=== PATIENT | male | born 1990 | race Caucasian/White ===

== ENCOUNTER 2019-06-25 15:48 | Emergency (ER) | payer OTHER ==
--- NOTE | 2019-06-25 16:09 | EDM.PDOC ---
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 He denies any other complaints at this time has no numbness tingling or loss of sensation or loss of function He is unsure of his tetanus status but states he has had multiple stitches over the last 10 years so it should be up-to-date he has no comorbidities Onset: Sudden Duration: Minutes: Location: Reports: Upper Extremity, Left Left Finger-Middle Pain Score (Numeric/FACES): 3 - Related Data Allergies Allergy/AdvReac Type Severity Reaction Status Date / Time No Known Allergies Allergy Verified 06/25/19 16:09 Home Meds: Home Meds . [No Known Home Meds] 06/25/19 [History] ED ROS GENERAL - Review of Systems Review Of Systems: See Below Constitutional: Reports: No Symptoms Respiratory: Reports: No Symptoms Cardiovascular: Reports: No Symptoms Endocrine: Reports: No Symptoms GI/Abdominal: Reports: No Symptoms : Reports: No Symptoms Musculoskeletal: Reports: No Symptoms Skin: Reports: No Symptoms Neurological: Reports: No Symptoms Psychiatric: Reports: No Symptoms Hematologic/Lymphatic: Reports: No Symptoms Immunologic: Reports: No Symptoms ED EXAM, SKIN/RASH Exam: See Below Exam Limited By: No Limitations General Appearance: Alert, WD/WN, No Apparent Distress. No: Mild Distress Extremities: Normal Inspection, Normal Range of Motion, Non-Tender, Normal Capillary Refill, Other (Exam to the left hand neurovascularly intact strong radius and ulna pulses full range of motion with all phalanges 1 cm x 2 mm x 3 mm linear laceration to the left third finger posterior aspect proximal to the PIP has equal soft touch sensation positive FDS FDP normal extension positive cap refill) Neurological: Alert, Oriented, CN II-XII Intact, Normal Cognition, Normal Gait, No Motor/Sensory Deficits Psychiatric: Normal Affect, Normal Mood Skin: Warm, Dry, Normal Color, No Rash. No: Intact Course - Vital Signs Text/Narrative:: Laceration was cleaned and irrigated with normal saline and Hibiclens Tetanus diphtheria was given to the patient last one was in 2007 Digital block was performed with Marcaine 0.5% 1 cc to the third digit laceration was closed with #5-0 Ethilon #3 simple interrupted covered with Neosporin petroleum gauze 4 x 4 and Kerlix Was given signs and symptoms on wound care and infection with a verbal understanding he was also instructed to have them removed in 7 to 10 days follow -up with your primary care provider in the next 24 to 48 hours for wound recheck Last Recorded V/S: Last Vital Signs Temp 36.8 C 06/25/19 15:55 Pulse 88 06/25/19 15:55 Resp 16 06/25/19 15:55 BP 155/98 H 06/25/19 15:55 Pulse Ox 98 06/25/19 15:55 - Orders/Labs/Meds Orders: Active Orders 24 hr Category Date Time Status Vaccines to be Administered [RC] PER UNIT ROUTINE Care 06/25/19 16:50 Active Meds: Medications Discontinued Medications Generic Name Dose Route Start Last Admin Trade Name Juani PRN Reason Stop Dose Admin Bupivacaine HCl 30 ml 06/25/19 16:15 06/25/19 16:15 Marcaine 0.5% INJECT 30 ml ASDIRECTED PRN Administration Other Diphtheria/Tetanus/Acell Pertussis 0.5 ml 06/25/19 16:50 06/25/19 17:00 Adacel IM 06/25/19 16:51 0.5 ml .ONCE ONE Administration Departure - Departure Time of Disposition: 16:35 Disposition: Home, Self-Care 01 Condition: Good Clinical Impression: Laceration of finger of left hand - Discharge Information *PRESCRIPTION DRUG MONITORING PROGRAM REVIEWED*: No *COPY OF PRESCRIPTION DRUG MONITORING REPORT IN PATIENT ALCIDES: No Instructions: Laceration Care, Adult, [id number] Referrals: PCP,None [Primary Care Provider] - Forms: ED Department Discharge Additional Instructions: Patient was given signs and symptoms on wound care and infection with a verbal understanding he was also instructed to have them removed in 7 to 10 days follow -up with your primary care provider in the next 24 to 48 hours for wound recheck Return to the emergency room if anything changes or gets worse Sepsis Event Note - Focused Exam Date Exam was Performed: 06/26/19 Time Exam was Performed: 15:09 - Problem List & Annotations (1) Laceration of finger of left hand SNOMED Code(s): 728063226 Code(s): S61.219A - LACERATION W/O FB OF UNSP FINGER W/O DAMAGE TO NAIL, INIT Status: Acute - My Orders Last 24 Hours: My Active Orders 06/25/19 16:50 Vaccines to be Administered [RC] PER UNIT ROUTINE - Assessment/Plan Last 24 Hours: My Active Orders 06/25/19 16:50 Vaccines to be Administered [RC] PER UNIT ROUTINE
[2019-06-25] MEDS ORDERED: Bupivacaine 0.5% 30 ML SDV INJECT PRN (16:15)
[2019-06-25] MEDS ORDERED: Diphtheria,Pertussis(Acell),Tetanus Vaccine 0.5 ML Syringe IM ONE (16:50)
== END 2019-06-25 17:05 | disposition home or self-care (01) ==
LOC: VM.ED 15:48
DX: S61.213A Laceration without foreign body of left middle finger without damage to nail, initial encounter (principal); Z23 Encounter for immunization; W26.0XXA Contact with knife, initial encounter
CPT/HCPCS: 12001; 90471; 90715; 99282; J3490

== ENCOUNTER 2021-05-20 11:41 | Emergency (ER) | payer BC ==
[2021-05-20] MEDS ORDERED: Aspirin 81 MG Tab.Chew PO ONE (12:03)
[2021-05-20 12:36] LABS: PTT,PARTIAL THROMBOPLSTIN TIME 24.3 SEC (25.6-32.8)
[2021-05-20 12:45] LABS: CHLORIDE,CL 98 mmol/L (98-107); SODIUM,NA 138 mmol/L (136-145)
[2021-05-20 12:48] LABS: ANION GAP 16.9 mmol/L (5-15)
--- NOTE | 2021-05-20 14:05 | EDM.PDOC ---
ED HPI GENERAL MEDICAL PROBLEM - General Chief Complaint: Chest Pain Stated Complaint: CHEST TIGHTNESS Time Seen by Provider: 05/20/21 11:50 Source of Information: Reports: Patient History Limitations: Reports: No Limitations - History of Present Illness INITIAL COMMENTS - FREE TEXT/NARRATIVE: Pt. presents to ER with complaints of chest tightness and lightheadedness. Pt. reports acute onset of symptoms today while shovelling snow. He states that he was not short of breath. No lightheadedness. No palpitations. He states that he was diaphoretic after this event, but he had been shovelling. He reports that the symptoms resolved after arriving to ER. Pt. has a history of ETOH abuse. Denies consumption of ETOH today. He does have a history of hypertension. He states that he has a history of previous episodes of intermittent chest pain necessitating visits to ERs in [place] and in [place]. He states that he has never had a stress test for formal workup for this. Onset: Today Onset Date: 05/20/21 Location: Reports: Chest - Related Data Allergies Allergy/AdvReac Type Severity Reaction Status Date / Time clonazepam Allergy Other Verified 02/01/21 14:29 Home Meds: Home Meds Cetirizine [ZyrTEC] 10 mg PO DAILY PRN 02/01/21 [History] Ibuprofen [Advil] 200 - 600 mg PO Q4H 02/01/21 [History] Metoprolol Tartrate [Lopressor] 50 mg PO BID 02/01/21 [History] Omeprazole Magnesium [Prilosec Otc] 20 mg PO DAILY 02/01/21 [History] Sertraline [Zoloft] 100 mg PO DAILY 02/01/21 [History] Past Medical History - Past Health History Medical/Surgical History: Denies Medical/Surgical History Musculoskeletal History: Reports: Other (See Below) Other Musculoskeletal History: shoulder pain Psychiatric History: Reports: ADHD - Past Surgical History GI Surgical History: Reports: Colonoscopy ED ROS GENERAL - Review of Systems Review Of Systems: See Below Constitutional: Reports: No Symptoms HEENT: Reports: No Symptoms Respiratory: Reports: Shortness of Breath, Pleuritic Chest Pain Cardiovascular: Reports: Chest Pain Endocrine: Reports: No Symptoms GI/Abdominal: Reports: No Symptoms : Reports: No Symptoms Musculoskeletal: Reports: No Symptoms Skin: Reports: No Symptoms Neurological: Reports: No Symptoms Psychiatric: Reports: No Symptoms Hematologic/Lymphatic: Reports: No Symptoms Immunologic: Reports: No Symptoms ED EXAM, GENERAL - Physical Exam Exam: See Below Exam Limited By: No Limitations General Appearance: Alert, WD/WN, No Apparent Distress Throat/Mouth: Normal Inspection, Normal Lips, Normal Teeth, Normal Gums, Normal Oropharynx, Normal Voice, No Airway Compromise Head: Atraumatic, Normocephalic Neck: Normal Inspection, Supple, Non-Tender, Full Range of Motion Respiratory/Chest: No Respiratory Distress, Lungs Clear, Normal Breath Sounds, No Accessory Muscle Use, Chest Non-Tender Cardiovascular: Normal Peripheral Pulses, Regular Rate, Rhythm, No Edema, No JVD, No Murmur Peripheral Pulses: 4+: Radial (L) GI/Abdominal: Soft, Non-Tender, No Distention, No Mass (Male) Exam: Deferred Rectal (Males) Exam: Deferred Back Exam: Normal Inspection, Full Range of Motion Extremities: Normal Inspection, Normal Range of Motion, Non-Tender, No Pedal Edema, Normal Capillary Refill Neurological: Alert, Oriented, CN II-XII Intact, Normal Cognition, Normal Gait, Normal Reflexes, No Motor/Sensory Deficits Psychiatric: Normal Affect, Normal Mood Skin Exam: Warm, Dry, Intact, Normal Color, No Rash Lymphatic: No Adenopathy #1 Interpretation Rhythm: NSR [place]: Normal P-Wave: Present QRS: Normal ST-T: Normal QT: Normal Course - Orders/Labs/Meds Orders: Active Orders 24 hr Category Date Time Status EKG Documentation Completion [RC] STAT Care 05/20/21 11:57 Active Labs: Laboratory Tests 05/20/21 05/20/21 05/20/21 Range/Units 12:08 12:08 12:08 WBC 5.0 (4.0-10.0) x10^3/uL RBC 4.44 L (4.5-6.0) x10^6/uL Hgb 14.5 (14.0-18.0) g/dL Hct 40.7 (40.0-52.0) % MCV 91.7 (78.0-93.0) fL MCH 32.7 H (26.0-32.0) pg MCHC 35.6 (32.0-36.0) g/dL RDW Coeff of Ruth 14.1 (10.0-15.0) % Plt Count 172 (130-400) x10^3/uL Immature Gran % (Auto) 0.20 (0.00-0.43) % Neut % (Auto) 63.1 (50.0-80.0) % Lymph % (Auto) 23.8 L (25.0-50.0) % [place] % (Auto) 9.3 (2.0-11.0) % Eos % (Auto) 3.0 (0.0-4.0) % Baso % (Auto) 0.6 (0.2-1.2) % Neut # (Auto) 3.1 (1.8-7.7) x10^3/uL Lymph # (Auto) 1.2 (1.0-4.8) x10^3/uL [place] # (Auto) 0.5 (0.0-0.8) x10^3/uL Eos # (Auto) 0.2 (0.0-0.5) x10^3/uL Baso # (Auto) 0.0 (0.0-0.2) x10^3/uL Immature Gran # (Auto) 0.01 (0.00-0.07) x10^3/uL PT 10.6 (9.9-12.5) SEC INR 1.0 L (2.0-3.5) APTT 24.3 L (25.6-32.8) SEC D-Dimer, Quantitative (<=0.58) mg/LFEU Sodium 138 (136-145) mmol/L Potassium 3.9 (3.5-5.1) mmol/L Chloride 98 (98-107) mmol/L Carbon Dioxide 27 (21-32) mmol/L Anion Gap 16.9 H (5-15) mmol/L BUN 6 L (7-18) mg/dL Creatinine 1.1 (0.70-1.30) mg/dL Est Cr Clr Drug Dosing TNP Estimated GFR (MDRD) > 60 Glucose 125 H (70-99) mg/dL Calcium 9.0 (8.5-10.1) mg/dL Corrected Calcium 8.9 (8.5-10.1) mg/dL Total Bilirubin 0.4 (0.2-1.0) mg/dL AST 228 H (15-37) U/L ALT 195 H (16-63) U/L Alkaline Phosphatase 123 H (46-116) U/L Troponin I High Sens 5 (<=76) ng/L C-Reactive Protein < 0.2 (<=0.9) mg/dL Total Protein 7.3 (6.4-8.2) g/dL Albumin 4.1 (3.4-5.0) g/dL Globulin 3.2 Albumin/Globulin Ratio 1.28 Ethyl Alcohol < 3 (0-3) mg/dL 05/20/21 Range/Units 12:08 WBC (4.0-10.0) x10^3/uL RBC (4.5-6.0) x10^6/uL Hgb (14.0-18.0) g/dL Hct (40.0-52.0) % MCV (78.0-93.0) fL MCH (26.0-32.0) pg MCHC (32.0-36.0) g/dL RDW Coeff of Ruth (10.0-15.0) % Plt Count (130-400) x10^3/uL Immature Gran % (Auto) (0.00-0.43) % Neut % (Auto) (50.0-80.0) % Lymph % (Auto) (25.0-50.0) % [place] % (Auto) (2.0-11.0) % Eos % (Auto) (0.0-4.0) % Baso % (Auto) (0.2-1.2) % Neut # (Auto) (1.8-7.7) x10^3/uL Lymph # (Auto) (1.0-4.8) x10^3/uL [place] # (Auto) (0.0-0.8) x10^3/uL Eos # (Auto) (0.0-0.5) x10^3/uL Baso # (Auto) (0.0-0.2) x10^3/uL Immature Gran # (Auto) (0.00-0.07) x10^3/uL PT (9.9-12.5) SEC INR (2.0-3.5) APTT (25.6-32.8) SEC D-Dimer, Quantitative 0.45 (<=0.58) mg/LFEU Sodium (136-145) mmol/L Potassium (3.5-5.1) mmol/L Chloride (98-107) mmol/L Carbon Dioxide (21-32) mmol/L Anion Gap (5-15) mmol/L BUN (7-18) mg/dL Creatinine (0.70-1.30) mg/dL Est Cr Clr Drug Dosing Estimated GFR (MDRD) Glucose (70-99) mg/dL Calcium (8.5-10.1) mg/dL Corrected Calcium (8.5-10.1) mg/dL Total Bilirubin (0.2-1.0) mg/dL AST (15-37) U/L ALT (16-63) U/L Alkaline Phosphatase (46-116) U/L Troponin I High Sens (<=76) ng/L C-Reactive Protein (<=0.9) mg/dL Total Protein (6.4-8.2) g/dL Albumin (3.4-5.0) g/dL Globulin Albumin/Globulin Ratio Ethyl Alcohol (0-3) mg/dL Meds: Medications Discontinued Medications Generic Name Dose Route Start Last Admin Trade Name Freq PRN Reason Stop Dose Admin Aspirin 324 mg 05/20/21 12:03 05/20/21 12:10 Aspirin 81 Mg Tab.Chew PO 05/20/21 12:04 324 mg ONETIME ONE Administration Departure - Departure Time of Disposition: 12:30 Disposition: Home, Self-Care 01 Clinical Impression: Atypical chest pain - Discharge Information Instructions: Nonspecific Chest Pain, Adult, [id number] Referrals: Ron Gallegos PA-C [Primary Care Provider] - Additional Instructions: Home to rest. All of your tests today are within normal limits, with the exception of elevated liver function tests which happens when a person drinks alcohol. I will forward the information about this visit to Ron Gallegos. I suggest having a stress test performed, since you have had problems with intermittent chest pain in the past. Return to ER if you have worsening discomfort, shortness of breath, or lightheadedness. - Problem List Review Problem List Initiated/Reviewed/Updated: Yes - My Orders Last 24 Hours: My Active Orders 05/20/21 11:57 EKG Documentation Completion [RC] STAT - Assessment/Plan Last 24 Hours: My Active Orders 05/20/21 11:57 EKG Documentation Completion [RC] STAT Plan: Home to rest. All of your tests today are within normal limits, with the exception of elevated liver function tests which happens when a person drinks alcohol. I will forward the information about this visit to Ron Gallegos. I suggest having a stress test performed, since you have had problems with intermittent chest pain in the past. Return to ER if you have worsening discomfort, shortness of breath, or lightheadedness.
== END 2021-05-20 13:13 | disposition home or self-care (01) ==
LOC: VM.ED 11:41
DX: R07.89 Other chest pain (principal); Z88.8 Allergy status to other drugs, medicaments and biological substances; Z79.899 Other long term (current) drug therapy
CPT/HCPCS: 80053; 80307; 84484; 85025; 85379; 85610; 85730; 86140; 93005; 99285-25; A9270-GY

== ENCOUNTER 2022-01-01 16:13 | Observation (INO) | payer BC ==
[2022-01-01] MEDS ORDERED: Sodium Chloride 0.9% 10 ML Syringe FLUSH PRN (16:57)
[2022-01-01 17:44] LABS: PTT,PARTIAL THROMBOPLSTIN TIME 24.8 SEC (20.5-30.9)
[2022-01-01 17:50] LABS: ANION GAP 18.7 mmol/L (5-15)
[2022-01-01] MEDS ORDERED: Lactated Ringers 1,000 ML IV ONE ×2 (18:18→21:40)
[2022-01-01] MEDS ORDERED: Magnesium Oxide 400 MG Tab PO ONE (18:26)
[2022-01-01] MEDS ORDERED: LORazepam 1 MG Tab PO PRN (18:26)
[2022-01-01] MEDS ORDERED: Ondansetron 4 MG/2 ML SDV IVPUSH PRN (18:26)
[2022-01-01] MEDS ORDERED: cloNIDine 0.1 MG Tab PO PRN (18:26)
[2022-01-01] MEDS ORDERED: Metoprolol Tartrate 25 MG Tab PO PRN (18:26)
[2022-01-01] MEDS ORDERED: chlordiazePOXIDE 25 MG Cap PO SCH (18:30)
[2022-01-01] MEDS: Nicotine 21 MG/24 Hr Patch TRDERM SCH (20:54)
[2022-01-01] MEDS: chlordiazePOXIDE 25 MG Cap PO SCH (21:35)
[2022-01-02] MEDS ORDERED: Magnesium Oxide 400 MG Tab PO ONE (00:15)
[2022-01-02] MEDS: chlordiazePOXIDE 25 MG Cap PO SCH ×6 (01:32→21:42)
[2022-01-02] MEDS ORDERED: Acetaminophen 500 MG Tab PO PRN (02:31)
[2022-01-02] MEDS: Thiamine 100 MG Tab PO SCH (09:31)
[2022-01-02] MEDS: Folic Acid 1 MG Tab PO SCH (09:31)
[2022-01-02] MEDS: Multivitamins with Iron/Calcium/Folic Acid/Minerals Tab PO SCH (09:31)
[2022-01-02] MEDS: Nicotine 21 MG/24 Hr Patch TRDERM SCH (09:36)
[2022-01-02] MEDS: Pantoprazole 40 MG Vial IV SCH (09:40)
[2022-01-03] MEDS: chlordiazePOXIDE 25 MG Cap PO SCH (04:32)
[2022-01-03] MEDS: Folic Acid 1 MG Tab PO SCH (08:42)
[2022-01-03] MEDS: Thiamine 100 MG Tab PO SCH (08:42)
[2022-01-03] MEDS: Multivitamins with Iron/Calcium/Folic Acid/Minerals Tab PO SCH (08:42)
[2022-01-03] MEDS: Nicotine 21 MG/24 Hr Patch TRDERM SCH (08:45)
[2022-01-03] MEDS: Pantoprazole 40 MG Vial IV SCH (08:47)
[2022-01-05] MEDS ORDERED: Gabapentin 100 MG Cap PO SCH (18:30)
== END 2022-01-03 09:00 | disposition home or self-care (01) ==
LOC: VM.ED 16:13 → VM.MS 17:58
PROVIDERS: ADMIT Physician Assistant; ATTEND Physician Assistant
DX: F10.10 Alcohol abuse, uncomplicated (principal); K21.9 Gastro-esophageal reflux disease without esophagitis; F17.210 Nicotine dependence, cigarettes, uncomplicated; Z88.8 Allergy status to other drugs, medicaments and biological substances; Z91.030 Bee allergy status; Z79.899 Other long term (current) drug therapy; Z98.890 Other specified postprocedural states
CPT/HCPCS: 80053; 80143; 80179; 80307; 81003; 82150; 83690; 83735; 84100; 84443; 85025; 85610; 85730; 96360; 96361; 96374; 99217; 99220; 99225; 99284-25; A9270-GY; C9113; G0378; J7120

== ENCOUNTER 2022-08-16 04:47 | Emergency (ER) | payer BC ==
[2022-08-16] MEDS: Take Home: Acetaminophen/Codeine 300 MG/30 MG, 5 Tab Pack PO ONE (05:20)
[2022-08-16] MEDS: Ketorolac 30 MG/ML SDV IM ONE (05:20)
== END 2022-08-16 05:35 | disposition home or self-care (01) ==
LOC: VM.ED 04:47
DX: K04.7 Periapical abscess without sinus (principal); I10 Essential (primary) hypertension; K21.9 Gastro-esophageal reflux disease without esophagitis; Z79.899 Other long term (current) drug therapy; Z88.8 Allergy status to other drugs, medicaments and biological substances; Z91.030 Bee allergy status
CPT/HCPCS: 96372; 99282; A9270-GY; J1885

== ENCOUNTER 2022-11-12 18:36 | Emergency (ER) | payer BC ==
[2022-11-12] MEDS ORDERED: Sodium Chloride 0.9% 1,000 ML IV ONE (18:46)
[2022-11-12] MEDS ORDERED: Sodium Chloride 0.9% 10 ML Syringe FLUSH PRN (18:46)
[2022-11-12 18:59] LABS: BASOPHILS ABSOLUTE AUTO 0.1 x10^3/uL (0.0-0.2); EOSINOPHILS ABSOLUTE AUTO 0.2 x10^3/uL (0.0-0.5); EOSINOPHILS PERCENT AUTO 3.4 % (0.0-4.0); HEMATOCRIT 45.2 % (40.0-52.0); HEMOGLOBIN 15.3 g/dL (14.0-18.0); IMMATURE GRAN ABSOLUTE AUTO 0.03 x10^3/uL (0.00-0.07); LYMPHOCYTES ABSOLUTE AUTO 2.4 x10^3/uL (1.0-4.8); LYMPHOCYTES PERCENT AUTO 39.5 % (25.0-50.0); MEAN CORPUSCULAR HEMOGLOBIN 28.2 pg (26.0-32.0); MEAN CORPUSCULAR HGB CONC 33.8 g/dL (32.0-36.0); MEAN CORPUSCULAR VOLUME 83.4 fL (78.0-93.0); MONOCYTES ABSOLUTE AUTO 0.5 x10^3/uL (0.0-0.8); MONOCYTES PERCENT AUTO 7.8 % (2.0-11.0); NEUTROPHILS ABSOLUTE AUTO 2.9 x10^3/uL (1.8-7.7); NEUTROPHILS PERCENT AUTO 47.8 % (50.0-80.0); RED BLOOD CELL COUNT 5.42 x10^6/uL (4.5-6.0); WHITE BLOOD CELL COUNT,WBC 6.1 x10^3/uL (4.0-10.0)
[2022-11-12 19:16] LABS: PLATELET COUNT,PLT 184 x10^3/uL (130-400)
[2022-11-12 19:17] LABS: A/G RATIO 1.18; ALANINE AMINOTRANSFERASE,ALT 118 U/L (16-63); ALKALINE PHOSPHATASE 93 U/L (46-116); ASPARTATE AMNIOTRANSFERASE,AST 84 U/L (15-37); BILIRUBIN TOTAL 0.2 mg/dL (0.2-1.0); BLOOD UREA NITROGEN,BUN 5 mg/dL (7-18); CALCIUM 8.6 mg/dL (8.5-10.1); CARBON DIOXIDE,CO2 26 mmol/L (21-32); CHLORIDE,CL 106 mmol/L (98-107); GLUCOSE RANDOM 127 mg/dL (70-99); POTASSIUM,K 4.1 mmol/L (3.5-5.1); PROTEIN TOTAL,TP 7.4 g/dL (6.4-8.2); SODIUM,NA 146 mmol/L (136-145)
[2022-11-12 19:18] LABS: ANION GAP 18.1 mmol/L (5-15); ESTIMATED GFR 101 mL/min (>=60); ETHANOL BLOOD MEDICAL 364 mg/dL (0-3)
[2022-11-12 19:29] LABS: AMPHETAMINES SCREEN, URINE NEGATIVE (NEGATIVE); BARBITURATE SCREEN,URINE NEGATIVE (NEGATIVE); BENZODIAZEPINES SCREEN,URINE NEGATIVE (NEGATIVE); BUPRENORPHINE SCREEN,URINE NEGATIVE (NEGATIVE); COCAINE METABOLITES,URINE NEGATIVE (NEGATIVE); METHADONE SCREEN, URINE NEGATIVE (NEGATIVE); METHAMPHETAMINE SCREEN, URINE NEGATIVE (NEGATIVE); OXYCODONE SCREEN,URINE NEGATIVE (NEGATIVE); PCP SCREEN,URINE NEGATIVE (NEGATIVE); THC SCREEN,URINE 50 NG/ML NEGATIVE (NEGATIVE)
== END 2022-11-12 21:13 ==
LOC: VM.ED 18:36 → EEVIPCON 18:36 → VM.ED 21:13
DX: F10.121 Alcohol abuse with intoxication delirium (principal); F41.9 Anxiety disorder, unspecified; F32.A Depression, unspecified; I10 Essential (primary) hypertension; K21.9 Gastro-esophageal reflux disease without esophagitis; Z88.8 Allergy status to other drugs, medicaments and biological substances; Z91.030 Bee allergy status; Z79.899 Other long term (current) drug therapy
CPT/HCPCS: 80053; 80305-QW; 80307; 85025; 99284; J7030

== ENCOUNTER 2023-07-15 19:35 | Emergency (ER) | payer BC ==
[2023-07-15] MEDS: Ondansetron 4 MG Tab.DIS PO ONE (20:34)
[2023-07-15] MEDS: LORazepam 1 MG Tab PO ONE (20:34)
[2023-07-15 20:35] LABS: BASOPHILS PERCENT AUTO 0.3 % (0.2-1.2); EOSINOPHILS ABSOLUTE AUTO 0.2 x10^3/uL (0.0-0.5); EOSINOPHILS PERCENT AUTO 2.5 % (0.0-4.0); HEMATOCRIT 40.9 % (40.0-52.0); IMMATURE GRAN ABSOLUTE AUTO 0.02 x10^3/uL (0.00-0.07); LYMPHOCYTES ABSOLUTE AUTO 0.9 x10^3/uL (1.0-4.8); LYMPHOCYTES PERCENT AUTO 14.1 % (25.0-50.0); MEAN CORPUSCULAR HEMOGLOBIN 25.4 pg (26.0-32.0); MEAN CORPUSCULAR HGB CONC 31.8 g/dL (32.0-36.0); MEAN CORPUSCULAR VOLUME 79.9 fL (78.0-93.0); MONOCYTES ABSOLUTE AUTO 0.4 x10^3/uL (0.0-0.8); MONOCYTES PERCENT AUTO 6.1 % (2.0-11.0); NEUTROPHILS ABSOLUTE AUTO 4.9 x10^3/uL (1.8-7.7); NEUTROPHILS PERCENT AUTO 76.7 % (50.0-80.0); PLATELET COUNT,PLT 220 x10^3/uL (130-400); RED BLOOD CELL COUNT 5.12 x10^6/uL (4.5-6.0); WHITE BLOOD CELL COUNT,WBC 6.4 x10^3/uL (4.0-10.0)
[2023-07-15 20:59] LABS: A/G RATIO 1.34; ALANINE AMINOTRANSFERASE,ALT 164 U/L (16-63); ALBUMIN 4.3 g/dL (3.4-5.0); ALKALINE PHOSPHATASE 93 U/L (46-116); ASPARTATE AMNIOTRANSFERASE,AST 110 U/L (15-37); BILIRUBIN TOTAL 0.4 mg/dL (0.2-1.0); BLOOD UREA NITROGEN,BUN 11 mg/dL (7-18); CALCIUM 9.5 mg/dL (8.5-10.1); CARBON DIOXIDE,CO2 27 mmol/L (21-32); CHLORIDE,CL 100 mmol/L (98-107); GLUCOSE RANDOM 131 mg/dL (70-99); MAGNESIUM 1.6 mg/dL (1.8-2.4); POTASSIUM,K 3.8 mmol/L (3.5-5.1); PROTEIN TOTAL,TP 7.5 g/dL (6.4-8.2); SODIUM,NA 139 mmol/L (136-145); TSH ULTRASENSITIVE 2.905 uIU/mL (0.358-3.74)
[2023-07-15 21:00] LABS: ANION GAP 15.8 mmol/L (5-15); ESTIMATED GFR 101 mL/min (>=60); ETHANOL BLOOD MEDICAL < 3 mg/dL (0-3)
[2023-07-15 21:28] LABS: CORONAVIRUS COVID-19 NAA NEGATIVE (NEGATIVE); INFLUENZA A NAA NEGATIVE (NEGATIVE); INFLUENZA B NAA NEGATIVE (NEGATIVE); RESPIRATORY SYNCYTIAL VIR NAA NEGATIVE (NEGATIVE)
[2023-07-15] MEDS: Take Home: Ondansetron 4 MG Tab.DIS, 5 Tab Pack PO ONE (21:40)
[2023-07-15] MEDS: Take Home: LORazepam 0.5 MG Tab, 2 Tab Pack PO ONE (21:40)
== END 2023-07-15 21:45 | disposition home or self-care (01) ==
LOC: VM.ED 19:35
DX: F10.139 Alcohol abuse with withdrawal, unspecified (principal); I10 Essential (primary) hypertension; K21.9 Gastro-esophageal reflux disease without esophagitis; Z79.899 Other long term (current) drug therapy; Z91.030 Bee allergy status; Z88.8 Allergy status to other drugs, medicaments and biological substances
CPT/HCPCS: 0241U; 36415; 80053; 80307; 83735; 84443; 84484; 85025; 93005; 99284; A9270; Q0162; 93010

== ENCOUNTER 2023-11-13 22:25 | Emergency (ER) | payer BC ==
[2023-11-13 22:48] LABS: BASOPHILS PERCENT AUTO 0.6 % (0.2-1.2); EOSINOPHILS ABSOLUTE AUTO 0.2 x10^3/uL (0.0-0.5); HEMOGLOBIN 13.6 g/dL (14.0-18.0); IMMATURE GRAN ABSOLUTE AUTO 0.01 x10^3/uL (0.00-0.07); LYMPHOCYTES PERCENT AUTO 40.7 % (25.0-50.0); MEAN CORPUSCULAR HEMOGLOBIN 22.4 pg (26.0-32.0); MEAN CORPUSCULAR HGB CONC 31.6 g/dL (32.0-36.0); MEAN CORPUSCULAR VOLUME 70.8 fL (78.0-93.0); MONOCYTES ABSOLUTE AUTO 0.5 x10^3/uL (0.0-0.8); MONOCYTES PERCENT AUTO 9.6 % (2.0-11.0); NEUTROPHILS ABSOLUTE AUTO 2.3 x10^3/uL (1.8-7.7); NEUTROPHILS PERCENT AUTO 45.9 % (50.0-80.0); PLATELET COUNT,PLT 207 x10^3/uL (130-400); RED BLOOD CELL COUNT 6.07 x10^6/uL (4.5-6.0); WHITE BLOOD CELL COUNT,WBC 4.9 x10^3/uL (4.0-10.0)
[2023-11-13 23:04] LABS: A/G RATIO 1.09; ALANINE AMINOTRANSFERASE,ALT 99 U/L (16-63); ALBUMIN 3.8 g/dL (3.4-5.0); ALKALINE PHOSPHATASE 117 U/L (46-116); ASPARTATE AMNIOTRANSFERASE,AST 56 U/L (15-37); BILIRUBIN TOTAL 0.1 mg/dL (0.2-1.0); BLOOD UREA NITROGEN,BUN 4 mg/dL (7-18); CARBON DIOXIDE,CO2 23 mmol/L (21-32); CHLORIDE,CL 104 mmol/L (98-107); CREATININE 0.9 mg/dL (0.70-1.30); GLUCOSE RANDOM 168 mg/dL (70-99); MAGNESIUM 1.8 mg/dL (1.8-2.4); POTASSIUM,K 3.8 mmol/L (3.5-5.1); PROTEIN TOTAL,TP 7.3 g/dL (6.4-8.2); SODIUM,NA 144 mmol/L (136-145)
[2023-11-13 23:05] LABS: ANION GAP 20.8 mmol/L (5-15); ESTIMATED GFR 114 mL/min (>=60)
[2023-11-13 23:06] LABS: ACETAMINOPHEN 0 ug/ml (10-30); ETHANOL BLOOD MEDICAL 361 mg/dL (0-3)
[2023-11-13 23:10] LABS: AMPHETAMINES SCREEN, URINE NEGATIVE (NEGATIVE); BARBITURATE SCREEN,URINE NEGATIVE (NEGATIVE); BENZODIAZEPINES SCREEN,URINE NEGATIVE (NEGATIVE); BUPRENORPHINE SCREEN,URINE NEGATIVE (NEGATIVE); COCAINE METABOLITES,URINE NEGATIVE (NEGATIVE); METHADONE SCREEN, URINE NEGATIVE (NEGATIVE); METHAMPHETAMINE SCREEN, URINE NEGATIVE (NEGATIVE); OXYCODONE SCREEN,URINE NEGATIVE (NEGATIVE); PCP SCREEN,URINE NEGATIVE (NEGATIVE); THC SCREEN,URINE 50 NG/ML NEGATIVE (NEGATIVE)
== END 2023-11-14 00:41 | disposition home or self-care (01) ==
LOC: VM.ED 22:25
DX: F10.121 Alcohol abuse with intoxication delirium (principal); I10 Essential (primary) hypertension; K21.9 Gastro-esophageal reflux disease without esophagitis; F17.210 Nicotine dependence, cigarettes, uncomplicated; Z79.899 Other long term (current) drug therapy; Z88.8 Allergy status to other drugs, medicaments and biological substances; Z91.030 Bee allergy status; Y90.8 Blood alcohol level of 240 mg/100 ml or more
CPT/HCPCS: 36415; 80053; 80143; 80179; 80305-QW; 80307; 83735; 85025; 99285